=== PATIENT | male | born 1955 | race Caucasian/White ===

== ENCOUNTER 2016-10-15 15:36 | Emergency (ER) | payer OTHER ==
[~2016-10-15] VITALS: Ht 180.3 cm; Wt 108.9 kg
[~2016-10-15 15:36] MED LIST: LISI1TAB PO
[2016-10-15 15:54] VITALS: BP 159/103; PULSE 65; RESP 18; TEMP 97.6; O2SAT 100
--- NOTE | 2016-10-15 15:59 | NUR ---
Pt placed to ER waiting room in stable condition.
--- NOTE | 2016-10-15 16:20 | NUR ---
Sirisha Escalera [employer] at bedside examining patient
--- NOTE | 2016-10-15 16:20 | NUR ---
Pt brought by self, A&Ox4, pt cut tip of right thumb on screen printing machine.skin pink and warm, bleeding controlled, pt afebrile.
[2016-10-15] MEDS ORDERED: BACITRACIN 1 GM OINT TP ONE (17:00)
[2016-10-15] MEDS ORDERED: DIPH-TET-PERTUS Vaccine 0.5 ML VIAL (ADACEL) IM ONE (17:00)
[2016-10-15] MEDS ORDERED: ACETAMINOPHEN 500 MG TABLET PO ONE (17:30)
[2016-10-15 17:42] VITALS: BP 150/98; PULSE 65; RESP 18; TEMP 97.6; O2SAT 100
--- NOTE | 2016-10-15 17:44 | NUR ---
Patient given written and verbal discharge instructions and verbalizes understanding. ER MD discussed with patient the results and treatment provided. Patient in stable condition. ID arm band removed. . Patient educated on pain management and to follow up with PMD. Pain Scale 0/10. Opportunity for questions provided and answered.
== END 2016-10-15 17:42 | disposition home or self-care (01) ==
LOC: SED 15:36
DX: S61.001A Unspecified open wound of right thumb without damage to nail, initial encounter (principal); X58.XXXA Exposure to other specified factors, initial encounter; Y93.89 Activity, other specified; Y92.89 Other specified places as the place of occurrence of the external cause; Y99.8 Other external cause status; I10 Essential (primary) hypertension
CPT/HCPCS: 90715; 99283